=== PATIENT | female | born 1950 | race Caucasian/White ===

== ENCOUNTER → 2020-02-08 09:13 | Outpatient (CLI) | payer OTHER, MEDICARE, SELFPAY ==
--- NOTE | ~2020-02-08 | MMUS_ITS ---
EXAMINATION: MM diagnostic alan BI w steffanie, US breast RT limited HISTORY: Lateral and axillary right breast pain TECHNIQUE: Craniocaudal, mediolateral, and mediolateral oblique 3-D tomosynthesis images of the breas ts were performed and synthetic 2-D images were generated. CAD analysis was submitted and interpreted . High resolution limited right breast ultrasound was performed. COMPARISON: 02/02/2013 BREAST PARENCHYMAL COMPOSITION: The breasts are almost entirely fatty. FINDINGS: MAMMOGRAPHIC FINDINGS: There is no evidence of suspicious mass, calcification, or architectural distortion to suggest malig armond. There has been no suspicious interval change. No mammographic correlate is identified for the patient's reported right breast and axillary pain. Scattered benign-appearing calcifications are pres ent. ULTRASOUND: There is no evidence of focal abnormal solid or cystic lesion in the vicinity of the patient's report ed right breast and axillary pain. Normal axillary lymph nodes are identified. IMPRESSION: 1. No specific mammographic or sonographic correlate is identified for the reported right breast and axillary pain. Further evaluation at this time should be based on clinical assessment. Continued foll ow-up physical examination is recommended. 2. Recommend routine screening mammography in one year. BI-RADS Category 2: Benign finding(s). Reviewed, dictated and finalized at location A. APPLICATION SPECIALIST IMPRESSION: 1. No specific mammographic or sonographic correlate is identified for the repo rted right breast and axillary pain. Further evaluation at this time should be based on clinical assessment. Continued follow-up physical examination is recom mended. 2. Recommend routine screening mammography in one year. BI-RADS Category 2: Benign finding(s).
== END ==
PROVIDERS: PCP Family Medicine; Visit Provider Family Medicine
DX: N64.4 Mastodynia (principal); N63.10 Unspecified lump in the right breast, unspecified quadrant
CPT/HCPCS: 76642; 77062; 77066; G0279

== ENCOUNTER 2020-02-13 06:51 | Outpatient (NON) | payer OTHER, MEDICARE, SELFPAY ==
[2020-02-16 13:56] LABS: SARS-CoV-2 RNA PCR Negative
== END 2020-02-13 06:52 ==
LOC: ANHCOVIDDT 07:14
PROVIDERS: PCP Family Medicine; Visit Provider Family Medicine
DX: Z20.828 Contact with and (suspected) exposure to other viral communicable diseases (principal)
CPT/HCPCS: 87635; C9803; U0003

== ENCOUNTER 2020-02-22 11:00 | Emergency (ER) | payer OTHER, MEDICARE, SELFPAY ==
--- NOTE | ~2020-02-22 | CT_ITS ---
EXAMINATION: CT brain wo con EXAM DATE: 02/22/2020 12:16 INDICATION: Syncope. Rectal bleeding and low abdominal pain. TECHNIQUE: Spiral CT of the head was performed without contrast. Axial, coronal and sagittal images were reviewed. The dose-length product (DLP) for this examination was 605.33 mGy-cm. The exposure w as tailored according to patient size, and iterative reconstruction (ASIR) was used as additional dos e reduction technique. There is no prior study for comparison. FINDINGS: There is no acute intraparenchymal hemorrhage. No evidence of intraparenchymal brain mass lesion. No evidence of acute infarction. Please note that initial head CT has limited sensitivity f or small or acute infarctions. There is mild periventricular and subcortical hypodensity, nonspecific but probably related to small vessel ischemic disease. There is mild prominence of the sulci and v entricles related to cerebral atrophy. There is intracranial carotid arteriosclerosis. There are n o extra-axial collections. There is no mass effect or midline shift. The orbits are unremarkable. Soft tissue is unremarkable. The visualized sinuses and mastoid air cells are well aerated. IMPRESSION: 1. No acute intracranial findings. 2. Chronic age related findings. Reviewed, dictated and finalized at location B. ITY TECHNICIAN
--- NOTE | ~2020-02-22 | CT_ITS ---
EXAMINATION: CT abdomen pelvis w con EXAM DATE: 02/22/2020 12:18 INDICATION: Abdominal pain, left lower quadrant pain. Rectal bleeding. TECHNIQUE: Spiral CT of the abdomen and pelvis was performed following intravenous injection of 100 m L Omnipaque 350. Axial, coronal and sagittal images were reviewed. The dose-length product (DLP) fo r this examination was 476.75 mGy-cm. The exposure was tailored according to patient size (auto mA e xposure control), and iterative reconstruction (ASIR) was used as additional dose reduction technique . Comparison is made to prior examination from 08/12/2018. FINDINGS: Several liver cysts up to 2.5 cm in the right liver lobe. The liver, spleen, adrenal gland s and pancreas are otherwise unremarkable. There are cholecystectomy clips. Portal and splenic vein s are patent. Kidneys enhance symmetrically. There is no hydronephrosis. There is a 9 mm right jared l cyst. The uterus is not identified and has likely been surgically resected. The bladder is unrema rkable. There is no retroperitoneal or pelvic lymphadenopathy. There is edema of the splenic flexure of the colon without pneumatosis. Appearance is consistent with colitis. The appendix is not positively visualized. There is no pericecal inflammatory change to marinelli ggest appendicitis. There is mild sigmoid colonic diverticulosis. There is no adjacent inflammatory change to suggest diverticulitis. There is small sliding gastroesophageal hiatal hernia. There is ex pected amount of colonic stool. No free intraperitoneal gas. The heart is normal in size. There are no pericardial or pleural effusions. The lung bases are unremarkable. There are no osteoblastic or osteolytic lesions identified. IMPRESSION: Splenic flexure colonic wall thickening, colitis. Mild sigmoid diverticulosis. Reviewed, dictated and finalized at location B. ING AIDE IMPRESSION: Splenic flexure colonic wall thickening, colitis. Mild sigmoid dive rticulosis.
[2020-02-22 11:09] VITALS: BP 131/90; PULSE 72; RESP 18; TEMP 36.2; O2SAT 97
--- NOTE | 2020-02-22 11:39 | ECG_ITS ---
Measurements Intervals [place] Rate: 79 P: 31 TX: 170 QRS: -31 QRSD: 107 T: 52 QT: 376 QTc: 432 Interpretive Statements SINUS RHYTHM LEFT AXIS DEVIATION DELAYED PRECORDIAL R/S TRANSITION BORDERLINE ECG Electronically Signed On 02-22-2020 13:25:56 CHIEF CLINICAL OFFICER by Ethan Mary D.O.
--- NOTE | 2020-02-22 11:41 | ED.GENADULT ---
HPI - General Adult General Chief complaint: GI Bleed Stated complaint: Rectal Bleeding Time Seen by Provider: 02/22/20 11:16 Source: patient History of Present Illness HPI narrative: Patient is a 69 y/o female complaining of left lower abdominal pain starting yesterday. She describes her pain as something stuck. She rates her pain as 3/10. There is no pain radiation, no alleviating or exacerbating factor. She also has nausea, diarrhea and bloody stool. In addition, she states that she passed out briefly yesterday and busted her lip. Related Data Home Medications Medication Instructions Recorded Confirmed hydroxychloroquine 200 mg tablet 200 mg PO BID 02/11/20 02/11/20 Allergies Allergy/AdvReac Type Severity Reaction Status Date / Time adhesive tape Allergy Unknown Rash Verified 02/22/20 11:21 Review of Systems Constitutional: Constitutional: Denies chills, Denies fever(s), Reports headache(s) and Denies weakness Eyes: Eyes: Denies blurry vision ENT: Reports headache(s) and Denies neck pain Cardiovascular: Cardiovascular: Denies chest pain and Denies dyspnea Respiratory: Respiratory: Denies cough and Denies dyspnea Gastrointestinal: Gastrointestinal: Reports abdominal pain, Reports hematochezia, Reports diarrhea, Reports nausea and Denies vomiting Genitourinary: Genitourinary: Denies hematuria and Denies dysuria Musculoskeletal: Musculoskeletal: Denies back pain and Denies neck pain Integumentary/Breasts: Skin/Breast: Reports wounds (lip laceration) Neurologic: Reports headache(s) and Denies weakness PMFSH Past Medical History Medical History Acute sinusitis, unspecified Breast pain, right Chronic anxiety Chronic depression 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 Essential (primary) hypertension Fibrous breast lumps GERD (gastroesophageal reflux disease) Hypersomnia Hypothyroidism, unspecified Irritable bowel syndrome with diarrhea Lupus Mixed hyperlipidemia Osteoarthritis involving multiple joints on both sides of body Renal and ureteric calculus Seasonal allergic rhinitis TIA (transient ischemic attack) Family History Family History Mother Family history of cardiovascular disease, Onset Age: 45 Father Family history of lung cancer, Onset Age: 60 Other Diabetes mellitus Family history of arthritis Family history of gout Hypertension Social History Social History Smoking status: Never smoker Alcohol intake: current Gender identity (if verbalized by the patient): Female Sexual Orientation (if Verbalized by the Patient): Straight or Heterosexual Exam Const: General: no acute distress and well developed Orientation/consciousness: oriented to person, oriented to place, oriented to time and patient oriented x3 HENMT: Head: normocephalic Ears: external ears normal General nose exam: Normal external nose present Mouth: Yes mouth trauma (laceration on lower lip) Eyes: General: appearance normal, both eyes and all related structures Conjunctivae: conjunctivae normal Neck: Neck: normal visual inspection and full ROM Chest: Chest palpation & inspection: normal inspection of the chest and no tenderness Resp: Effort & Inspection: normal respiratory effort Auscultation: clear to auscultation bilaterally Cardio: Rate: regular rate Rhythm: regular rhythm GI: GI Palp: No abdominal tenderness and Yes Soft to palpation Skin: General skin exam: normal color and turgor normal Neuro: General: oriented to person, oriented to place, oriented to time and patient oriented x3 Cognition (Neuro): normal cognition Extrem: General: normal to inspection, full ROM and no pedal edema Psych: Appearance: grossly normal Mental Status: mental status grossly normal Affect: normal affect
[2020-02-22 11:46] LABS: Basophils Absolute Auto 0.1 K/mm3 (0.0-0.1); Basophils Percent Auto 0.5 % (0.2-1.2); Eosinophils Absolute Auto 0.1 K/mm3 (0-0.3); Hematocrit 46.8 % (37.0-47.0); Hemoglobin 16.5 g/dL (12.0-15.0); Immature Granulocyte Absolute 0.03 K/mm3 (0.00-0.031); Immature Granulocyte Percent A 0.3 % (0-0.5); Lymphocytes Absolute Auto 1.65 K/mm3 (0.9-3.2); Lymphocytes Percent Auto 15.6 % (18.3-44.2); Mean Corpuscular HGB Conc 35.3 g/dl (32-36); Mean Corpuscular Hemoglobin 31.4 pg (26-34); Mean Platelet Volume 9.7 fl (7.4-10.4); Monocytes Absolute Auto 0.9 K/mm3 (0.1-0.6); Monocytes Percent Auto 8.6 % (2.6-8.5); Neutrophils Absolute Auto 7.8 K/mm3 (1.3-6.7); Platelet Count Result 270 k/mm3 (150-375); Red Blood Count 5.26 M/mm3 (4.2-5.4); Red Cell Distribution Width 12.8 % (11.5-14.5); White Blood Count 10.6 K/mm3 (4.5-10.0)
[2020-02-22 12:00] LABS: Alanine Aminotransferase 22 U/L (4-35); Albumin Level 4.1 g/dL (3.5-5.1); Alkaline Phosphatase 131 U/L (38-126); Anion Gap 9 mmol/L (8-16); Aspartate Amino Transferase 28 U/L (14-36); Bilirubin,Total 0.5 mg/dL (0.2-1.3); Blood Urea Nitrogen 19 mg/dL (7-17); Calcium 9.6 mg/dL (8.4-10.2); Carbon Dioxide 22 mmol/L (22-30); Chloride 103 mmol/L (98-107); Estimated CRCL calculation 48 ml/min; Estimated Glomerular Filt Rate > 60; Glucose 112 mg/dL (65-105); Sodium 134 mmol/L (137-145)
[2020-02-22] MEDS: TETANUS,DIPHTHERIA,AC PERTUSSIS ADULT (0.5 ML) BOOSTRIX IM (12:34)
[2020-02-22 12:40] LABS: Add Urine Microscopic? NO; Appearance Urine Clear (Clear); Bilirubin Urine Negative (Negative); Blood Urine Negative (Negative); Color Urine Straw (Yellow); Glucose Urine UA Negative (Negative); Ketones Urine Negative (Negative); Leukocyte Esterase Ur Negative LEU/UL (Negative); Mucus Urine Rare /lpf; Nitrate Urine Negative (Negative); Protein Urine Negative (Negative); Urobilinogen Urine Negative mg/dL (<2.0); WBC Urine 0-3 /hpf
[2020-02-22] MEDS: SODIUM CHLORIDE 0.9% IV 1,000 ML 999 ML IV CONT (13:47)
[2020-02-22] MEDS: CIPROFLOXACIN 400 MG/D5W 200ML 200 ML 200 MG IVPB (13:47)
[2020-02-22] MEDS: metroNIDAZOLE 500 MG/ISO 100ML 500 MG/100 ML BAG 100 MG IVPB (14:51)
[2020-02-22 14:52] VITALS: BP 138/81; PULSE 82; RESP 16; O2SAT 98
[2020-02-22 16:23] VITALS: BP 128/77; PULSE 83; RESP 16; O2SAT 97
--- NOTE | 2020-03-03 08:25 | PC.NURSE ---
late entry for Feb 22, 2020: Flagyl IV was stopped 30 mins after initiated. Infused over 30 mins via pump per md orders.
== END 2020-02-22 16:25 | disposition home or self-care (01) ==
PROVIDERS: Emergency Provider Emergency Medicine; PCP Family Medicine
DX: K52.9 Noninfective gastroenteritis and colitis, unspecified (principal); R55 Syncope and collapse; S01.511A Laceration without foreign body of lip, initial encounter; Z23 Encounter for immunization; W18.39XA Other fall on same level, initial encounter; M10.071 Idiopathic gout, right ankle and foot; I10 Essential (primary) hypertension; K21.9 Gastro-esophageal reflux disease without esophagitis; E03.9 Hypothyroidism, unspecified; E78.5 Hyperlipidemia, unspecified; K58.0 Irritable bowel syndrome with diarrhea; E78.2 Mixed hyperlipidemia; M19.90 Unspecified osteoarthritis, unspecified site; Z86.73 Personal history of transient ischemic attack (TIA), and cerebral infarction without residual deficits; F41.9 Anxiety disorder, unspecified; F32.9 Major depressive disorder, single episode, unspecified
CPT/HCPCS: 36415; 70450; 74177; 80053; 81003; 85025; 90471; 90715; 93005; 96361; 96365; 96367; 99284; J0744; J7030; Q9967

== ENCOUNTER 2020-02-26 13:25 | Outpatient (NON) | payer OTHER, MEDICARE, SELFPAY | END 2020-02-26 13:26 | PROVIDERS: PCP Family Medicine; Visit Provider Emergency Medicine | DX: K52.9 Noninfective gastroenteritis and colitis, unspecified (principal) | CPT/HCPCS: 87045; 87046; 87324; 87427 ==

== ENCOUNTER 2020-11-19 10:49 | Emergency (ER) | payer OTHER, MEDICARE, SELFPAY ==
--- NOTE | 2020-11-19 10:51 | ED.LOWEXIN ---
HPI - Extremity Injury (Lower) General Chief Complaint: Extremity Injury, Lower Stated Complaint: rt foot pain Time Seen by Provider: 11/19/20 10:51 Source: patient and RN notes reviewed History of Present Illness HPI Narrative: Patient 70-year-old female who presents the urgent care with complaints of right great toe pain that extends into the right foot. Patient states is been ongoing for approximately 1 week and she does have a history of gout and arthritis. Patient takes daily allopurinol for her gout and states that she has approximately 2 gout flares a year. Patient has not had her uric acid level drawn recently. Patient has not taken anything for her pain. No other acute complaints. No acute distress noted. Patient aware of the plan of care Some parts of this dictation were generated by voice recognition software and may contain typographical and/or grammatical inaccuracies. Related Data Home Medications Medication Instructions Recorded Confirmed hydroxychloroquine 200 mg tablet 200 mg PO BID 02/11/20 03/09/20 Allergies Allergy/AdvReac Type Severity Reaction Status Date / Time adhesive tape Allergy Unknown Rash Verified 02/22/20 11:21 Review of Systems Review of Systems: CONSTITUTIONAL: Denies fever, chills, or sweats. EYES: Denies visual changes, redness, or discharge. ENT: Denies rhinorrhea, congestion, sore throat, or otalgia. CARDIOVASCULAR: Denies chest pain, palpitations, or edema. RESPIRATORY: Denies cough or dyspnea. GASTROINTESTINAL: Denies abdominal pain, nausea, vomiting, or diarrhea. GENITOURINARY: Denies dysuria or hematuria. SKIN: Denies rash or itching. MUSCULOSKELETAL: Reports of pain, redness and swelling to the right great toe NEUROLOGIC: Denies headache, numbness, or weakness. All other systems reviewed are negative, except as documented in HPI. 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 Essential (primary) hypertension Fibrous breast lumps GERD (gastroesophageal reflux disease) Hypersomnia Hypothyroidism, unspecified Infectious colitis Irritable bowel syndrome with diarrhea Lupus Mixed hyperlipidemia Osteoarthritis involving multiple joints on both sides of body Renal and ureteric calculus Seasonal allergic rhinitis TIA (transient ischemic attack) Family History Family History Mother Family history of cardiovascular disease, Onset Age: 45 Father Family history of lung cancer, Onset Age: 60 Other Diabetes mellitus Family history of arthritis Family history of gout Hypertension Social History Social History Smoking status: Never smoker Alcohol intake: current Gender identity (if verbalized by the patient): Female Comments At the time of my signature, I reviewed and agree with the nursing past medical, surgical, social, and family history. There is no relevant family history pertinent to the patient complaint. Exam Narrative: GENERAL: This is a well-nourished, well-developed patient, in no apparent distress. HEAD: normocephalic, atraumatic. EYES: PERRL. Sclera clear/white. Vision is grossly intact. EARS: External ears normal NOSE: External nose normal with no obvious nasal discharge, nares without redness, no rhinorrhea. THROAT: Mucous membranes moist, posterior pharynx clear. NECK: Neck supple CARDIOVASCULAR: Regular rate and rhythm without murmurs, gallops, or rubs. RESPIRATORY: Clear to auscultation. Breath sounds equal bilaterally. No wheezes, rales, or rhonchi. SKIN: warm, intact with no suspicious lesions or rash, good texture and turgor. NEURO: awake, alert, and oriented to person, place and time. There were no obvious f
[2020-11-19 11:01] VITALS: BP 127/94; PULSE 88; RESP 16; TEMP 37.1; O2SAT 98
[2020-11-19 11:03] VITALS: BP 127/94; PULSE 88; RESP 16; TEMP 37.1; O2SAT 98
== END 2020-11-19 11:30 | disposition home or self-care (01) ==
PROVIDERS: Emergency Provider Nurse Practitioner Family; PCP Family Medicine
DX: M25.571 Pain in right ankle and joints of right foot (principal); I10 Essential (primary) hypertension; K21.9 Gastro-esophageal reflux disease without esophagitis; E03.9 Hypothyroidism, unspecified; E78.5 Hyperlipidemia, unspecified; Z86.73 Personal history of transient ischemic attack (TIA), and cerebral infarction without residual deficits; M1A.0711 Idiopathic chronic gout, right ankle and foot, with tophus (tophi)
CPT/HCPCS: 99213; G0463

== ENCOUNTER 2021-06-02 01:10 | Day surgery (SDC) | payer OTHER, MEDICARE, SELFPAY ==
[2021-05-22 11:36] VITALS: BMI 27.5
--- NOTE | 2021-06-01 13:39 | WPDANESEPP ---
Anes - Eval Pre Procedure Procedure: Operation Date: 06/02/21 10:00 Proposed Procedures p Screening Colonoscopy - Oswaldo Ernst MD Date/Time: 06/01/21 13:39 Pre Op Diagnosis: neoplasm screening Patient Data Age: 70 Gender: F Height: 1.65 m Weight: 75 kg Allergies Allergy/AdvReac Type Severity Reaction Status Date / Time adhesive tape Allergy Unknown Rash Verified 05/22/21 11:32 Home Medications Medication Instructions Recorded Confirmed Type allopurinol 100 mg tablet 100 mg PO DAILY #30 tablet 04/18/21 05/22/21 Rx alprazolam 0.25 mg tablet 0.25 mg PO TID PRN #60 tablet 04/18/21 05/22/21 Rx amlodipine 10 mg tablet 10 mg PO DAILY #30 tablet 04/18/21 05/22/21 Rx fluoxetine 40 mg capsule 40 mg PO DAILY #30 cap 04/18/21 05/22/21 Rx hydroxychloroquine 200 mg tablet 200 mg PO DAILY tablet 04/18/21 05/22/21 History levothyroxine 75 mcg tablet 75 mcg PO DAILY #30 tablet 04/18/21 05/22/21 Rx lisinopril 20 mg tablet 20 mg PO DAILY #30 tablet 04/18/21 05/22/21 Rx cyanocobalamin (vitamin B-12) 1,000 mcg PO DAILY 04/29/21 05/22/21 History 1,000 mcg tablet cefdinir 300 mg capsule 300 mg PO Q12H #20 cap 05/11/21 Rx Patient hx anesthesia problems: none Family hx anesthesia problems: none Results Review: All pre-operative results and documents have been reviewed as part of the pre-operative evaluation. 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 Colon cancer screening Essential (primary) hypertension Fibrous breast lumps GERD (gastroesophageal reflux disease) Hypersomnia Hypothyroidism, unspecified TSH 3.21 with free T4 1.27 on 04/28/2021 Infectious colitis Irritable bowel syndrome with diarrhea Lupus Mixed hyperlipidemia cholesterol 183, triglycerides 150, HDL 53, LDL 104, Osteoarthritis involving multiple joints on both sides of body Renal and ureteric calculus Seasonal allergic rhinitis SLE (systemic lupus erythematosus) TIA (transient ischemic attack) 2015 Vitamin B12 deficiency anemia (04/28/21) level low at 389 with goal greater than 400 on 04/28/2021 Family History Family History Mother Family history of cardiovascular disease, Onset Age: 45 Father Family history of lung cancer, Onset Age: 60 Other Diabetes mellitus Family history of arthritis Family history of gout Hypertension Social History Social History Smoking status: Never smoker Alcohol intake: current Alcohol use details: ocassional beer Substance use: never Substance use type: does not use Living arrangements: with family Gender identity (if verbalized by the patient): Female Sexual Orientation (if Verbalized by the Patient): Straight or Heterosexual Spiritual care concerns: No Exam Day of Procedure 06/01/21 13:39
--- NOTE | 2021-06-01 15:22 | WPDGICN ---
Assessment and Plan Assessment and plan (1) Colon cancer screening: Code(s): Z12.11 - Encounter for screening for malignant neoplasm of colon Status: Acute Assessment and Plan: Colonoscopy with possible biopsy or polypectomy or cautery or injection of substances. GI Consult Note Consult date/time: 06/01/21 15:22 HPI: Elisabet Kemp is a 70 year old female referred for consideration for colonoscopy for colon cancer screening. she suffers from irritable bowel syndrome. She has not seen blood in her stools. 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 Colon cancer screening Essential (primary) hypertension Fibrous breast lumps GERD (gastroesophageal reflux disease) Hypersomnia Hypothyroidism, unspecified TSH 3.21 with free T4 1.27 on 04/28/2021 Infectious colitis Irritable bowel syndrome with diarrhea Lupus Mixed hyperlipidemia cholesterol 183, triglycerides 150, HDL 53, LDL 104, Osteoarthritis involving multiple joints on both sides of body Renal and ureteric calculus Seasonal allergic rhinitis SLE (systemic lupus erythematosus) TIA (transient ischemic attack) 2016 Vitamin B12 deficiency anemia (04/28/21) level low at 389 with goal greater than 400 on 04/28/2021 Family History Family History Mother Family history of cardiovascular disease, Onset Age: 45 Father Family history of lung cancer, Onset Age: 60 Other Diabetes mellitus Family history of arthritis Family history of gout Hypertension Social History Social History Smoking status: Never smoker Alcohol intake: current Alcohol use details: ocassional beer Substance use: never Substance use type: does not use Living arrangements: with family Gender identity (if verbalized by the patient): Female Sexual Orientation (if Verbalized by the Patient): Straight or Heterosexual Spiritual care concerns: No Meds Home Medications and Allergies Home Medications Medication Instructions Recorded Confirmed Type allopurinol 100 mg tablet 100 mg PO DAILY #30 tablet 04/18/21 06/02/21 Rx alprazolam 0.25 mg tablet 0.25 mg PO TID PRN #60 tablet 04/18/21 06/02/21 Rx amlodipine 10 mg tablet 10 mg PO DAILY #30 tablet 04/18/21 06/02/21 Rx fluoxetine 40 mg capsule 40 mg PO DAILY #30 cap 04/18/21 06/02/21 Rx hydroxychloroquine 200 mg tablet 200 mg PO DAILY tablet 04/18/21 06/02/21 History levothyroxine 75 mcg tablet 75 mcg PO DAILY #30 tablet 04/18/21 06/02/21 Rx lisinopril 20 mg tablet 20 mg PO DAILY #30 tablet 04/18/21 06/02/21 Rx cyanocobalamin (vitamin B-12) 1,000 mcg PO DAILY 04/29/21 06/02/21 History 1,000 mcg tablet cefdinir 300 mg capsule 300 mg PO Q12H #20 cap 05/11/21 06/02/21 Rx Allergies Allergy/AdvReac Type Severity Reaction Status Date / Time adhesive tape Allergy Unknown Rash Verified 06/02/21 09:02 Exam Const: General: alert Orientation/consciousness: patient oriented x3 Resp: Auscultation: clear to auscultation bilaterally Cardio: Rhythm: regular rhythm GI: GI Palp: Yes Soft to palpation and No Tenderness to palpation present (GI) Neuro: General: patient oriented x3
[2021-06-02 09:05] VITALS: BP 137/95; PULSE 96; RESP 18; TEMP 36.8; O2SAT 97
[2021-06-02] MEDS: LACTATED RINGERS 1,000 ML 150 ML IV CONT (09:11)
--- NOTE | 2021-06-02 09:16 | WPDANESEFPP ---
Anes - Eval Final PreProcedure Day of Procedure 06/02/21 09:16 Patient weight: overweight Heart: regular rate and rhythm Lungs: clear to auscultation Airway: Mallampati scale class II Neurological: alert and oriented Last oral intake: >/= 8 hours ASA classification: III Emergent: no Anesthetic plan: proceed Anesthesia type and monitoring: general GIVS and standard monitoring Results Review: All pre-operative results and documents have been reviewed as part of the pre-operative evaluation. Informed Consent: The patient's anesthetic plan and its attendant risks and benefits were discussed with the patient/family/POA. Questions were solicited and answers provided to the satisfaction of the patient/family/POA.
[2021-06-02 10:18] VITALS: BP 100/64; PULSE 82; RESP 17; O2SAT 95
[2021-06-02 10:28] VITALS: BP 110/72; PULSE 76; RESP 17; O2SAT 95
[2021-06-02 10:38] VITALS: BP 153/91; PULSE 99; RESP 19; O2SAT 98
== END 2021-06-02 10:56 | disposition home or self-care (01) ==
PROVIDERS: PCP Family Medicine; Visit Provider Internal Medicine Gastroenterology
PROC: 0DJD8ZZ Inspection of Lower Intestinal Tract, Via Natural or Artificial Opening Endoscopic (ICD-10-PCS; CPT 45378; principal; 2021-06-02 10:00)
DX: Z12.11 Encounter for screening for malignant neoplasm of colon (principal); K57.30 Diverticulosis of large intestine without perforation or abscess without bleeding; E78.2 Mixed hyperlipidemia; E03.9 Hypothyroidism, unspecified; I10 Essential (primary) hypertension; F41.8 Other specified anxiety disorders; K21.9 Gastro-esophageal reflux disease without esophagitis; K58.0 Irritable bowel syndrome with diarrhea; M32.9 Systemic lupus erythematosus, unspecified; D51.9 Vitamin B12 deficiency anemia, unspecified; Z86.73 Personal history of transient ischemic attack (TIA), and cerebral infarction without residual deficits
CPT/HCPCS: 45378; J2704; J7120

== ENCOUNTER → 2021-06-13 12:07 | Outpatient (CLI) | payer OTHER, MEDICARE, SELFPAY ==
--- NOTE | ~2021-06-13 | MM_ITS ---
EXAMINATION: MM screening [facility] BI w steffanie HISTORY: Screening mammogram TECHNIQUE: Craniocaudal and mediolateral oblique 3-D tomosynthesis images were obtained and synthetic 2-D images were generated. CAD analysis was submitted and interpreted. COMPARISON: 02/08/2020, 02/02/2013 BREAST PARENCHYMAL COMPOSITION: There are scattered areas of fibroglandular density. FINDINGS: Scattered benign-appearing calcifications are present. There is no suspicious mass, calcifi cation, or architectural distortion to suggest malignancy in either breast. There has been no suspici ous interval change. IMPRESSION: 1. No mammographic evidence of malignancy. 2. Recommend routine screening mammography in one year. BI-RADS Category 2: Benign finding(s). Reviewed, dictated and finalized at location A.
== END ==
PROVIDERS: PCP Family Medicine; Visit Provider Family Medicine
DX: Z12.31 Encounter for screening mammogram for malignant neoplasm of breast (principal)
CPT/HCPCS: 77063; 77067

== ENCOUNTER 2021-08-08 09:21 | Emergency (ER) | payer OTHER, MEDICARE, SELFPAY ==
--- NOTE | ~2021-08-08 | CT_ITS ---
EXAMINATION: CT abdomen pelvis w con DATE: 08/08/2021 10:47 INDICATION: Left lower quadrant abdominal pain TECHNIQUE: Computed tomography (CT) of the abdomen and pelvis was performed with 100 CC Omnipaque 300 intravenous contrast. Automated exposure control and iterative reconstruction technique were employe d. Exam dose: 555.97 mGy-cm total exam DLP. COMPARISON: 02/22/2020 CT abdomen pelvis FINDINGS: There is mild bilateral dependent lower lobe and lingular atelectasis. Normal heart size. No pericardial or pleural effusion. There are several approximately 5-18 mm probable hepatic cysts and/or hemangiomas. Status post cholecystectomy, which likely accounts for mild intrahepatic and extrahepatic bile duct p rominence. Normal splenic size. No pancreatic mass lesion, calcification or ductal dilatation. Normal morphology of the adrenal glands. 11 mm right renal cyst. Small focal upper medial left renal scar. The kidneys are otherwise unremarka ble. No urinary tract calculus or hydroureteronephrosis. Normal caliber of the abdominal aorta. No intraperitoneal or retroperitoneal or pelvic mass lesion or adenopathy or ascites. The urinary bladder is unremarkable. Status post hysterectomy. Small sliding hiatal hernia. Small bowel is unremarkable except for a couple of fluid levels in the r ight lower quadrant. There is prominent thickening of the wall of the descending colon with pericolic fat stranding, adjac ent anterior pararenal and lateroconal fascial thickening. The soft tissue thickening extends into th e sigmoid colon, without the adjacent fat stranding however. No bowel obstruction or intraperitoneal free air. Small fat-containing umbilical hernia. No suspicious osteolytic or osteoblastic lesions. IMPRESSION: Prominent soft tissue thickening of the wall and prominent pericolic fat stranding throug hout the length of the descending colon, consistent with colitis, possibly inflammatory or infectious , not likely ischemic Diverticulosis and thickening of the wall the sigmoid colon without associated pericolic fat strandin g Several 5-18 mm hepatic cysts or hemangiomas Status post cholecystectomy 11 mm right renal cyst Small sliding hiatal hernia Reviewed, dictated and finalized at [facility]. Reviewed, dictated and finalized at [facility]. IMPRESSION: Prominent soft tissue thickening of the wall and prominent pericoli c fat stranding throughout the length of the descending colon, consistent with colitis, possibly inflammatory or infectious, not likely ischemic Diverticulosis and thickening of the wall the sigmoid colon without associated pericolic fat stranding Several 5-18 mm hepatic cysts or hemangiomas Status post cholecystectomy 11 mm right renal cyst Small sliding hiatal hernia
[2021-08-08 09:35] VITALS: BP 144/93; PULSE 94; RESP 16; TEMP 37.1; O2SAT 96
[2021-08-08] MEDS: SODIUM CHLORIDE 0.9% IV 1,000 ML 999 ML IV CONT (09:41)
[2021-08-08] MEDS: MORPHINE SULFATE (*CRX) 4 MG/ML INJ IV PUSH (09:42)
[2021-08-08] MEDS: ONDANSETRON INJ 4 MG/2 ML VIAL IV PUSH (09:42)
[2021-08-08 09:55] LABS: Basophils Percent Auto 0.3 % (0.2-1.2); Eosinophils Percent Auto 0.2 % (0-4.4); Hematocrit 44.9 % (37.0-47.0); Hemoglobin 15.8 g/dL (12.0-15.0); Immature Granulocyte Absolute 0.03 K/mm3 (0.00-0.031); Immature Granulocyte Percent A 0.2 % (0-0.5); Lymphocytes Absolute Auto 1.08 K/mm3 (0.9-3.2); Mean Corpuscular HGB Conc 35.2 g/dl (32-36); Mean Corpuscular Volume 88.2 fl (80-100); Mean Platelet Volume 9.7 fl (7.4-10.4); Monocytes Absolute Auto 0.8 K/mm3 (0.1-0.6); Monocytes Percent Auto 6.8 % (2.6-8.5); Neutrophils Absolute Auto 10.1 K/mm3 (1.3-6.7); Neutrophils Percent Auto 83.5 % (45.5-73.1); Platelet Count Result 260 k/mm3 (150-375); Red Blood Count 5.09 M/mm3 (4.2-5.4); Red Cell Distribution Width 13.3 % (11.5-14.5); White Blood Count 12.1 K/mm3 (4.5-10.0)
[2021-08-08 10:09] LABS: Alanine Aminotransferase 21 U/L (6-35); Albumin Level 4.2 g/dL (3.5-5.1); Alkaline Phosphatase 154 U/L (38-126); Anion Gap 7 mmol/L (8-16); Aspartate Amino Transferase 29 U/L (14-36); Bilirubin,Total 0.5 mg/dL (0.2-1.3); Blood Urea Nitrogen 18 mg/dL (7-17); Calcium 9.2 mg/dL (8.4-10.2); Carbon Dioxide 24 mmol/L (22-30); Chloride 108 mmol/L (98-107); Estimated CRCL calculation 58 ml/min; Estimated Glomerular Filt Rate > 60; Glucose 139 mg/dL (65-110); Lipase 82 U/L (23-300); Potassium 3.7 mmol/L (3.4-5.0); Sodium 139 mmol/L (137-145)
--- NOTE | 2021-08-08 12:35 | ED.ABDPAIN ---
HPI - Abdominal Pain General Chief Complaint: Abdominal Pain Stated Complaint: abd pain Time Seen by Provider: 08/08/21 09:24 History of Present Illness HPI narrative: Patient is a 71-year-old female who presents ER with left-sided abdominal pain with diarrhea. Ongoing since yesterday. Began [address] tac[address] from [employer]. She has been having diarrhea every 20 minutes throughout the night. She is noted some blood in the stool that streaked. No dizziness loss of consciousness. No documented fevers. Has history of diverticuli but no history of colitis. She endorses some mild nausea. Related Data Home Medications Medication Instructions Recorded Confirmed hydroxychloroquine 200 mg tablet 200 mg PO DAILY tablet 04/18/21 06/02/21 cyanocobalamin (vitamin B-12) 1,000 mcg PO DAILY 04/29/21 06/02/21 1,000 mcg tablet Allergies Allergy/AdvReac Type Severity Reaction Status Date / Time adhesive tape Allergy Unknown Rash Verified 08/08/21 09:38 [email or web address] [From Omnicef] AdvReac Intermediate Diarrhea Verified 08/08/21 09:38 Review of Systems Review of Systems: All systems reviewed & are unremarkable except as noted in HPI and below Constitutional: Constitutional: Denies chills, Reports fatigue and Denies fever(s) ENT: Denies nasal congestion and Denies sore throat Gastrointestinal: Gastrointestinal: Reports abdominal pain, Reports diarrhea and Reports nausea Genitourinary: Genitourinary: Denies dysuria and Denies flank pain PMFSH Past Medical History Medical History (Updated 08/08/21 @ 12:36 by Rafael Crenshaw MD) Abnormal fasting glucose (04/28/21) glucose 105 on 04/28/2021 Acute sinusitis, unspecified BMI 27.0-27.9,adult Breast cancer screening by mammogram 06/13/2021 with normal mammogram Breast pain, right Chronic anxiety Chronic depression 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 Recheck in 10 years. Essential (primary) hypertension Fibrous breast lumps GERD (gastroesophageal reflux disease) Hypersomnia Hypothyroidism, unspecified TSH 3.21 with free T4 1.27 on 04/28/2021 Infectious colitis Normal colonoscopy 06/02/2021 Irritable bowel syndrome with diarrhea Lupus Mixed hyperlipidemia cholesterol 183, triglycerides 150, HDL 53, LDL 104, Osteoarthritis involving multiple joints on both sides of body Otitis media Renal and ureteric calculus Seasonal allergic rhinitis SLE (systemic lupus erythematosus) TIA (transient ischemic attack) 2016 Vitamin B12 deficiency anemia (04/28/21) level low at 389 with goal greater than 400 on 04/28/2021 Family History Family History Mother Family history of cardiovascular disease, Onset Age: 45 Father Family history of lung cancer, Onset Age: 60 Other Diabetes mellitus Family history of arthritis Family history of gout Hypertension Social History Social History Smoking status: Never smoker Alcohol intake: current Alcohol use details: ocassional beer Substance use: never Substance use type: does not use Gender identity (if verbalized by the patient): Female Sexual Orientation (if Verbalized by the Patient): Straight or Heterosexual Spiritual care concerns: No Exam Narrative: GENERAL: Well-appearing, well-nourished, and in no acute distress. HEAD: Normocephalic, atraumatic.t. CHEST: Clear to auscultation. No respiratory distress. HEART: Regular rate and rhythm. Normal peripheral pulses. ABDOMEN: Soft, mild tenderness palpation left lower quadrant without, nondistended. EXTREMITIES: Normal range of motion. No edema. SKIN: Warm, dry, no rash. NEURO: Alert and oriented x3. PSYCH: Normal mood and affect. Course Course Emergency Course: Discussed infect
[2021-08-08 12:53] VITALS: BP 129/71; PULSE 74; RESP 16
== END 2021-08-08 12:53 | disposition home or self-care (01) ==
PROVIDERS: Emergency Provider Emergency Medicine; PCP Family Medicine
DX: K52.9 Noninfective gastroenteritis and colitis, unspecified (principal); I10 Essential (primary) hypertension; K21.9 Gastro-esophageal reflux disease without esophagitis; E03.9 Hypothyroidism, unspecified; E78.2 Mixed hyperlipidemia; M32.9 Systemic lupus erythematosus, unspecified; M10.071 Idiopathic gout, right ankle and foot; M19.90 Unspecified osteoarthritis, unspecified site; F41.9 Anxiety disorder, unspecified; F32.A Depression, unspecified; Z86.73 Personal history of transient ischemic attack (TIA), and cerebral infarction without residual deficits; E53.8 Deficiency of other specified B group vitamins; K57.90 Diverticulosis of intestine, part unspecified, without perforation or abscess without bleeding; N28.1 Cyst of kidney, acquired; K44.9 Diaphragmatic hernia without obstruction or gangrene; R93.2 Abnormal findings on diagnostic imaging of liver and biliary tract
CPT/HCPCS: 36415; 74177; 80053; 83690; 85025; 96361; 96374; 96375; 99284; J2270; J2405; J7030; Q9967

== ENCOUNTER 2021-10-19 11:43 | Outpatient (RCR) | payer OTHER, MEDICARE, SELFPAY ==
[2021-10-19] MEDS: diphenhydrAMINE HCl CAP 25 MG CAPSULE PO (12:09)
[2021-10-19] MEDS: FAMOTIDINE 20 MG TABLET PO (12:09)
[2021-10-19] MEDS: ACETAMINOPHEN 325 MG TABLET 650 MG PO (12:09)
[2021-10-19 12:14] VITALS: BP 130/84; PULSE 78; RESP 20; TEMP 36.4; O2SAT 97
[2021-10-19] MEDS: BEBTELOVIMAB 175 MG/2 ML VIAL IV PUSH (12:31)
[2021-10-19 13:09] VITALS: BP 129/77; PULSE 63; O2SAT 97
== END 2021-10-19 16:00 ==
LOC: AMCINF 11:43
PROVIDERS: PCP Nurse Practitioner Family; Referring Provider Nurse Practitioner Family; Visit Provider Internal Medicine Hematology & Oncology
DX: U07.1 COVID-19 (principal); I10 Essential (primary) hypertension; D84.9 Immunodeficiency, unspecified
CPT/HCPCS: A9270; M0222; Q0222

== ENCOUNTER → 2023-05-15 12:33 | Outpatient (CLI) | payer OTHER, SELFPAY ==
--- NOTE | ~2023-05-15 | XR_ITS ---
XR foot RT min 3V DATE: 05/15/2023 12:41 INDICATION: Pain at base of great toe. History of gout. TECHNIQUE: 4 views COMPARISON: None FINDINGS: Prominent plantar calcaneal enthesopathy without associated erosive change or periostitis. Minimal posterior calcaneal enthesopathy. Very prominent dorsal spur at the first metatarsophalangeal joint. No fracture or dislocation, periosteal reaction or bone destruction is detected. IMPRESSION: Prominent dorsal spur at first metatarsophalangeal joint Calcaneal enthesopathy Reviewed, dictated and finalized at [facility]. GRAPHIC TECH
== END ==
PROVIDERS: PCP Family Medicine; Visit Provider Family Medicine
DX: M79.674 Pain in right toe(s) (principal); M77.31 Calcaneal spur, right foot
CPT/HCPCS: 73630

== ENCOUNTER 2023-05-21 09:18 | Outpatient (CLI) | payer OTHER, SELFPAY ==
--- NOTE | 2023-06-17 19:18 | WPDSLEEPSTUD ---
Sleep Study Date of Study: 05/21/23 Ordering Provider: Isiah George MD Interpreting Physician: Claudia Schultz MD Sleep Study Type: Split Polysomnogram Height: 1.65 m Weight: 67.132 kg Body Mass Index: 24.6 Neck Circumference (inches): 13 [place]: 4 Reason for Sleep Study Non-refreshing sleep, feeling tired waking, difficulty falling asleep and waking during the night Sleep History Elisabet Kemp is a 72-year-old woman with constant daytime fatigue. She is not refreshed when she wakes in the morning. After 2 hours of wakefulness, she is once again sleepy. Her mouth and tongue are dry in the morning. She rarely wakes at night with heartburn, belching or coughing.??She occasional snores, and occasionally this is loud enough that others complain. She occasionally has trouble sleeping when she has a cold. She rarely wakes up gasping for breath during the night. She never has breathing problems at night. She frequently sweats excessively at night. She occasionally notices her heart pounding or beating irregularly during the night. She frequently falls asleep during the day. She rarely falls asleep involuntarily, however never falls asleep while driving. She never experiences loss of muscle tone with strong emotion. She never feels paralyzed on waking or falling asleep. She occasionally experiences vivid dreams upon waking or falling asleep. She never feels afraid of going to sleep. She occasionally has nightmares. She frequently recalls her dreams. She constantly has thoughts racing through her mind. She constantly feels sad or depressed. She constantly feels anxiety. She occasionally notices parts of her body jerk. She occasionally kicks during the night. She occasionally feels crawling or aching feelings in her legs. She occasionally feels leg pain at night. She occasionally has morning jaw pain, although she rarely grinds her teeth at night. She occasionally feels bothered by pain during the day, is occasionally awakened by pain during the night. She occasionally wakes up feeling stiff in the morning, occasionally wakes feeling sore or achy in the morning. She occasionally awakens with pain in her neck, spine, or joints. She reports a 20 lb weight loss in the last year. She had a stroke in 2014, she has nasal allergies, depression and heartburn. Normal bedtime is 9:00 p.m., taking what seems like hours to fall asleep. She typically wakes up 5 times during the night. she does not have any specific thing that disturbs her sleep although sometimes it is the temperature, either too hot or too cold or noise. When she awakens she tries to return to sleep and this may take 1/2 hour. She may just lie in bed and try to return to sleep. Her normal wake time is 9:00 a.m.. She estimates getting 10 hours of sleep at night. She keeps the same schedule on weekends. Sometimes she cancels social engagements due to feeling excessively tired. She takes naps in the afternoon or evening. A short nap lasting 10-15 minutes is not refreshing. She is drowsy for 2 hours after waking. She feels better in the afternoon compared to other times of day. Habits:??Tobacco: Never smoked Caffeine: 2 coffees and 2 servings of tea per day. Alcohol: none Recreational substances: none PMFSH Past Medical History Medical History Abnormal fasting glucose (04/28/21) glucose 105 on 04/28/2021. Fasting glucose 90 with hemoglobin A1c 5.7 on 07/06/2022. 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 Uric acid 6.4 on 07/06/2022. Colon cancer screening colonoscopy 06/02/2021 with diverticul
[2023-06-17 20:12] VITALS: BMI 24.6
== END 2023-05-22 07:04 | disposition home or self-care (01) ==
LOC: ANHCSM 09:27
PROVIDERS: PCP Family Medicine; Visit Provider Family Medicine
DX: G47.33 Obstructive sleep apnea (adult) (pediatric) (principal); G47.10 Hypersomnia, unspecified; D75.1 Secondary polycythemia
CPT/HCPCS: 95811